=== PATIENT | male | born 1980 | race Caucasian/White ===

== ENCOUNTER 2021-07-15 13:03 | Emergency (ER) | payer OTHER, SELFPAY ==
--- NOTE | 2021-07-15 13:11 | ED.EAR ---
HPI - Ear Problem General Chief complaint: Ear Stated complaint: EARACHE/FACIAL PAIN Time Seen by Provider: 07/15/21 13:11 Source: patient Mode of arrival: ambulatory Limitations: no limitations History of Present Illness HPI Narrative: John Mayfield is a 40 yo male with a L ear pain, started few days ago, has sinus issues and is in a [employer] work environment Related Data Allergies Allergy/AdvReac Type Severity Reaction Status Date / Time No Known Allergies Allergy Verified 07/15/21 13:14 Review of Systems Review of Systems: CONSTITUTIONAL: Denies fever, chills, sweats. EYES: Denies visual changes, redness, discharge. ENT: Denies rhinorrhea, congestion, sore throat, left otalgia. CARDIOVASCULAR: Denies chest pain, palpitations, edema. RESPIRATORY: Denies dyspnea, wheezing, cough GASTROINTESTINAL: Denies abdominal pain, nausea, vomiting, diarrhea. GENITOURINARY: Denies dysuria, hematuria, abnormal discharge SKIN: Denies rash or itching. NEUROLOGIC: Denies numbness, or focal weakness. PSYCHIATRIC: Denies anxiety or depression. PMFSH Past Medical History Medical History Dust allergy Social History Social History Smoking status: Never smoker Alcohol intake: current Comments At time of signature, I agree with nursing past medical, surgical, social and family history. There is no relevant family history pertinent to the presenting complaint. Blood pressure is elevated and should follow-up with PCP Exam Narrative: GENERAL: This is a well-nourished, well-developed patient, in mild distress. HEAD: normocephalic, atraumatic. EYES: PERRL. Sclera clear/white. Vision is grossly intact. EARS: External ears normal, auditory canals mild erythema and without drainage, fluid behind TMs greater on the left than right. Hearing grossly intact. NOSE: External nose normal without nasal discharge, nares without redness, no rhinorrhea. THROAT: Mucous membranes moist, NECK: Neck supple, non-tender CARDIOVASCULAR: Regular rate and rhythm without murmurs, gallops, or rubs. RESPIRATORY: Clear to auscultation. Breath sounds equal bilaterally. No wheezes, rales, or rhonchi. GASTROINTESTINAL: Not done SKIN: warm, intact with no suspicious lesions or rash, good texture and turgor. NEURO: awake, alert, and oriented to person, place and time. There were no obvious focal neurologic abnormalities. Steady gait EXTREMITIES: Normal range of motion. BACK: Nontender without deformity Course Course Emergency Course: Patient comes to [facility] with left ear pain is been going on for few days States he has sinus issues and dust allergy and works in a [employer] environment Started on Zyrtec and polymyxin eardrops Level of Care: Express Care Visit Vital Signs Vital signs: Vital Signs Temperature 97.7 F 07/15/21 13:12 Pulse Rate 84 07/15/21 13:12 Respiratory Rate 16 07/15/21 13:12 Blood Pressure 149/94 H 07/15/21 13:12 Pulse Oximetry 98 07/15/21 13:12 Temperature 97.7 F 07/15/21 13:12 Pulse Rate 84 07/15/21 13:12 Respiratory Rate 16 07/15/21 13:12 Blood Pressure 149/94 H 07/15/21 13:12 Pulse Oximetry 98 07/15/21 13:12 Medical Decision Making Differential Diagnosis Differential Diagnosis: Otitis media versus otitis externa versus eustachian tube dysfunction versus sinus drainage Vital Signs Vital Signs: Vital Signs Temperature 97.7 F 07/15/21 13:12 Pulse Rate 84 07/15/21 13:12 Respiratory Rate 16 07/15/21 13:12 Blood Pressure 149/94 H 07/15/21 13:12 Pulse Oximetry 98 07/15/21 13:12 Temperature 97.7 F 07/15/21 13:12 Pulse Rate 84 07/15/21 13:12 Respiratory Rate 16 07/15/21 13:12 Blood Pressure 149/94 H 07/15/21 13:12 Pulse Oximetry 98 07/15/21 13:12 Critical Care Time Critical Care Time Critical Care Time: No Discharge Plan Discharge Clinical Impressio
[2021-07-15 13:12] VITALS: BP 149/94; PULSE 84; RESP 16; TEMP 36.5; O2SAT 98
== END 2021-07-15 13:31 | disposition home or self-care (01) ==
PROVIDERS: Emergency Provider Nurse Practitioner
DX: H60.502 Unspecified acute noninfective otitis externa, left ear (principal)
CPT/HCPCS: 99213; G0463

== ENCOUNTER 2025-03-20 17:36 | Emergency (ER) | payer OTHER, SELFPAY ==
[2025-03-20 17:45] VITALS: BP 141/91; PULSE 92; RESP 18; TEMP 36.4; O2SAT 99
--- NOTE | 2025-03-20 17:57 | ED.SKABFB ---
HPI - Skin/Abscess/Foreign Bdy General Chief complaint: Skin/Abscess/Foreign Body Stated complaint: poison Sally Time Seen by Provider: 03/20/25 17:45 Source: patient and RN notes reviewed Mode of arrival: ambulatory Limitations: no limitations History of Present Illness HPI narrative: 44-year-old male presents Express Care complaining of rash to arms, abdomen, face, scalp approximately 5 days. Patient was [place] 5 days ago your a for [place] hunting season. Patient believes he might have gotten poison sally from there. Patient reports a pruritic rash. Patient has any fevers, body aches, chills, nausea vomiting or swelling to the lips, tongue, throat, breathing problems, wheezing, shortness of breath or any other symptoms. Patient trying calamine lotion with no relief. Related Data Allergies Allergy/AdvReac Type Severity Reaction Status Date / Time No Known Allergies Allergy Verified 03/20/25 17:41 Review of Systems Review of Systems: CONSTITUTIONAL: Denies fever, chills, or sweats. EYES: Denies visual changes, redness, or discharge. ENT: Denies rhinorrhea, congestion, sore throat, or otalgia. CARDIOVASCULAR: Denies chest pain, palpitations, or edema. RESPIRATORY: Denies cough or dyspnea. GASTROINTESTINAL: Denies abdominal pain, nausea, vomiting, or diarrhea. GENITOURINARY: Denies dysuria or hematuria. SKIN: Positive for rash and itching. MUSCULOSKELETAL: Denies back pain, joint pain, or myalgia. NEUROLOGIC: Denies headache, numbness, or weakness. PSYCHIATRIC: Denies anxiety or depression. All other systems reviewed are negative, except as documented in HPI. PMFSH Past Medical History Medical History Dust allergy Social History Social History Smoking status: Never smoker Alcohol intake: current Comments At the time of my signature, I reviewed and agree with the nursing past medical, surgical, social, and family history. There is no relevant family history pertinent to the patient complaint. Exam Narrative: GENERAL: This is a well-nourished, well-developed adult, in no apparent distress. They are non ill-appearing, nontoxic appearing. HEAD: normocephalic, atraumatic. EYES: Sclera clear/white. Conjunctiva normal. Vision is grossly intact. Extraocular movements intact EARS: External ears normal, Hearing grossly intact. NOSE: External nose normal THROAT: Mucous membranes moist, NECK: Neck supple,. CARDIOVASCULAR: Regular rate and rhythm RESPIRATORY: Respiratory rate normal, respiratory effort nonlabored, no respiratory distress GASTROINTESTINAL: Abdomen soft, non-tender, nondistended. Bowel sounds are active. No hepato-splenomegaly, or palpable masses. No guarding. SKIN: Macular papular, vesicular rash scattered scaly throughout the patient's bilateral arms, abdomen, were diffusely to left lower pelvis, and scantly on face and, on head of scalp. NEURO: awake, alert, and oriented to person, place and time. There were no obvious focal neurologic abnormalities. EXTREMITIES: No joint tenderness, effusion, or edema noted. Course Course Emergency Course: Portions of this record may have been created with voice recognition software Level of Care: Express Care Visit Vital Signs Vital signs: Vital Signs Temperature 97.6 F 03/20/25 17:45 Pulse Rate 92 03/20/25 17:45 Respiratory Rate 18 03/20/25 17:45 Blood Pressure 141/91 H 03/20/25 17:45 Pulse Oximetry 99 03/20/25 17:45 Oxygen Delivery Room Air 03/20/25 17:45 Temperature 97.6 F 03/20/25 17:45 Pulse Rate 92 03/20/25 17:45 Respiratory Rate 18 03/20/25 17:45 Blood Pressure 141/91 H 03/20/25 17:45 Pulse Oximetry 99 03/20/25 17:45 Oxygen Delivery Room Air 03/20/25 17:45 Reviewed MDM - Skin/Abscess/Foreign Bdy MDM Narrative Medical decision making narrative: Patient likely has contact dermatitis related to poison sally. Since it is distributed throughout the patient's trunk, arms, face and scalp, will go ahead and treat with oral prednisone set of topical steroids. Discussed physical exam findings. Advised supportive measures and signs/symptoms to go to the ER. Pt is appropriate for outpt treatment and f/u. Differential Diagnosis Differential diagnosis: Likely urticaria, cellulitis, eczema, insect bites, contact dermatitis and other (Poison sally) Critical Care Time Critical Care Time Critical Care Time: No Discharge Plan Discharge Clinical Impression: Poison sally dermatitis Patient Disposition: Home Condition: Stable Instructions: Poison Sally (ED) Additional Instructions: Take the prednisone as directed. Take it in the morning and take it with food. You may use iqqi-mcs-ywpjhnq Tecnu soap as directed on the bottle to help remove the oils from poison sally off your skin. You may use calamine lotion, camphor, Benadryl cream as needed for itchiness symptoms. Follow instructions on the bottle. You may also take Zyrtec or Claritin as needed for allergy or itchiness symptoms. Follow-up PCP in 3-5 days. If you develop any worsening redness, swelling, discharge, fevers, breathing problems, or any other concerns please go to the ER immediately. Patient Language: Azeri Prescriptions: New prednisone 10 mg tablet See Taper PO DIRECTED Qty: 42 0RF Taper: Prednisone Taper from 60 mg;12 days 60 mg DAILY for 2 Days and 0 Hour 50 mg DAILY for 2 Days and 0 Hour 40 mg DAILY for 2 Days and 0 Hour 30 mg DAILY for 2 Days and 0 Hour 20 mg DAILY for 2 Days and 0 Hour 10 mg DAILY for 2 Days and 0 Hour Rx Instructions: Follow taper instructions Follow-up/Referrals: UNKNOWN,DOCTOR [Primary Care Provider] Time of Disposition: 17:55
== END 2025-03-20 17:57 | disposition home or self-care (01) ==
DX: L23.7 Allergic contact dermatitis due to plants, except food (principal)
CPT/HCPCS: 99213; G0463

== ENCOUNTER 2025-04-15 09:06 | Emergency (ER) | payer OTHER, SELFPAY ==
[2025-04-15 09:21] VITALS: BP 133/66; PULSE 76; RESP 18; TEMP 36.6; O2SAT 97
--- NOTE | 2025-04-15 09:24 | ED.SKABFB ---
HPI - Skin/Abscess/Foreign Bdy General Chief complaint: Skin/Abscess/Foreign Body Stated complaint: poison Sally Time Seen by Provider: 04/15/25 09:24 Source: patient Mode of arrival: ambulatory Limitations: no limitations History of Present Illness HPI narrative: 44-year-old male presents with poison to face and groin. Itching and rash for 2-3 days. Started after hunting. Not using any vadg-qil-wtrjvdz medications to treat symptoms. All systems reviewed and negative except as noted. Related Data Allergies Allergy/AdvReac Type Severity Reaction Status Date / Time No Known Allergies Allergy Verified 04/15/25 09:20 [facility] Past Medical History Medical History Dust allergy Social History Social History Smoking status: Never smoker Alcohol intake: current Comments At time of signature, agree with nursing past medical, surgical, social and family history. There is no relevant family history pertinent to the presenting complaint. Exam Narrative: GENERAL: This is a well-nourished, well-developed patient, in no apparent distress. HEAD: normocephalic, atraumatic. EYES: PERRL. Sclera clear/white. Vision is grossly intact. EARS: External ears normal NOSE: External nose normal NECK: Neck supple, non-tender without lymphadenopathy, masses or thyromegaly. CARDIOVASCULAR: Regular rate and rhythm without murmurs, gallops, or rubs. RESPIRATORY: Clear to auscultation. Breath sounds equal bilaterally. No wheezes, rales, or rhonchi. SKIN: warm, Dry, intact, good texture and turgor. Erythematous macular papular raised rash to forehead, upper eyelids and cheeks. NEURO: awake, alert, and oriented to person, place and time. There were no obvious focal neurologic abnormalities. EXTREMITIES: No joint tenderness, effusion, or edema noted. Course Course Level of Care: Express Care Visit Vital Signs Vital signs: Vital Signs Temperature 36.6 C 04/15/25 09:21 Pulse Rate 76 04/15/25 09:21 Respiratory Rate 18 04/15/25 09:21 Blood Pressure 133/66 04/15/25 09:21 Pulse Oximetry 97 04/15/25 09:21 Oxygen Delivery Room Air 04/15/25 09:21 Temperature 36.6 C 04/15/25 09:21 Pulse Rate 76 04/15/25 09:21 Respiratory Rate 18 04/15/25 09:21 Blood Pressure 133/66 04/15/25 09:21 Pulse Oximetry 97 04/15/25 09:21 Oxygen Delivery Room Air 04/15/25 09:21 Reviewed MDM - Skin/Abscess/Foreign Bdy MDM Narrative Medical decision making narrative: treat poison sally rash with prednisone taper. Patient agrees with of care. Patient is taking medication in the past to treat poison sally without complications. Will follow up with his doctor as needed. Patient is alert, nontoxic. Differential Diagnosis Differential diagnosis: Likely abscess of skin or subcutaneous tissue, urticaria, eczema and contact dermatitis Discharge Plan Discharge Clinical Impression: Dermatitis due to plants, including poison sally, sumac, and oak Patient Disposition: Home Condition: Stable Instructions: Poison Sally (ED) Additional Instructions: take prednisone as prescribed. Take a daily antihistamine such as Claritin or Zyrtec. Apply steroid cream to affected area. Avoid applying to face. Follow-up your primary care physician if not improving. Patient Language: Hebrew Prescriptions: New prednisone 10 mg tablet See Rx Instructions .ROUTE .COMPLEX Qty: 42 0RF Rx Instructions: Take 6 tablets for 2 days Take 5 tablets for 2 days Take 4 tablets for 2 days Take 3 tablets for 2 days Take 2 tablets for 2 days Take 1 tablet for 2 days triamcinolone acetonide 0.1 % cream 1 applic topical BID Qty: 30 0RF Follow-up/Referrals: UNKNOWN,DOCTOR [Primary Care Provider] Time of Disposition: :29
--- OUTSIDE RECORDS SUMMARY | 2025-04-15 09:37 | XMS_ITS | Clinical Summary ---
[facility] [address] [place] [address] Care Team Providers Care Gas Appliance Servicer Name Role Phone Cedrick Chavez MD Primary Care Provide r Allergies No known active allergies Medications hydrocortisone 2.5 % ointmentIndicati ons:Rash and nonspecific skin eruption Apply topically 2 (two) times a day 30 g 1 5 Active Active Problems Problem Noted Date Diagnosed Date Obesity (BMI 30.0-34.9) 10/16/2024 Assessment & Plan (10/16/2024 11:33 AM CDT): Discussed importance of weight loss and healthy lifestyle Goal weight under 200 pounds Rectal bleeding 10/16/2024 Assessment & Plan (10/16/2024 11:33 AM CDT): Suspect related to internal hemorrhoids, but given additional GI symptoms not unreasonable to obtain colonoscopy Pt deferred rectal exam today Update CBC Referral for colonoscopy placed today Orders: Direct Scheduling Case Request: COLONOSCOPY CBC with auto differential; Future Internal hemorrhoids 04/27/2021 Overview (05/03/2022): 04/2022: Has had no recurrence last office visit. Was seen by GI specialist. BMI 34.0-34.9,adult 04/27/2021 Immunizations Immunization Administration Dates Next Due Influenza, Quadrivalent, Spl it, Preservative Free, Intramuscular 03/17/2019 Tdap 01/12/2021 Medical History Medical History Date Comments Bronchitis Family History Medical History Relation Name Comments No Known Problems Brother No Known Problems Daughter COPD Father Deep vein thrombosis Mother Stroke Mother No Known Problems Sister No Known Problems Son Relation Name Status Comments Brother Alive Daughter Alive Father Alive Mother Alive Sister Alive Son Alive Social History Tobacco Use Types Packs/Day Years Used Date Smoking Tobacco: Never Smokeless Tobacco: Never Tobacco Cessation:Counseling Given: Not Answered PHQ-2 Answer Date Recorded PHQ-2 Total Score (If total score is 3 or more points, staff should administer the PHQ-9) 0 10/16/2024 Sex and Gender Information Value Date Recorded Sex Assigned at Not on file Legal Sex Male 8:10 AM [employer] Gender Identity Not on file Sexual Orientation Not on file Last Filed Vital Signs Vital Sign Reading Time Taken Comments Blood Pressure 124/76 10/16/2024 11:15 AM CDT Pulse 89 10/16/2024 11:15 AM CDT Temperature - - Respiratory Rate - - Oxygen Saturation 96% 10/16/2024 11:15 AM CDT Inhaled Oxygen Concentration - - Weight 107.5 kg (237 lb) 10/16/2024 11:15 AM CDT Height 182.9 cm (6') 10/16/2024 11:15 AM CDT Body Mass Index 32.14 10/16/2024 11:15 AM CDT Plan of Treatment Upcoming Encounters Date Type Department Care Team (Late st Contact Info) Description 04/25/2025 8:30 AM [employer] Hospital Encounter [facility] [address] [place] [phone] [place] [id number] [place], [place] [phone] 04/25/2025 8:30 AM [employer] - 04/25/2025 9:00 AM [employer] Surgery [facility] [address] [place] [phone] [place] [id number] [place] [address] COLONOSCOPY Scheduled Procedures Name Priority Associated Diagnoses Date/Ti me COLONOSCOPY Open Access Rectal bleeding 04/25/2025 8:30 AM [employer] Health Maintenance Due Date Last Done Comments HPV Vaccines (1 - 3-dose SCDM series) 2009 Influenza Vaccine (#1) 2025 03/17/2019 Depression Screening 10/16/2025 10/16/2024, 04/29/2022, 04/27/2021 Regular Well Visit/Exam 18-64 10/16/2025 10/16/2024, 04/29/2022, 04/27/2021 DTaP/Tdap/Td Vaccine (2 - Td or Tdap) 01/12/2031 01/12/2021 Hepatitis C Screening Completed 10/16/2024 Hepatitis B Screening Discontinued Pneumococcal vaccine <65 Aged Out No longer eligible based on patient's age to complete this topic Varicella Vaccines Discontinued Procedures Procedure Name Priority Date/Time Associated Diagnosis Comments HEPATITIS C ANTIBODY Routine 10/16/2024 11:52 AM CDT Need for hepatitis C screening test from Last 3 Months or Most Recently Relevant to Health Maintenance Results * Hepatitis C antibody Blood (10/16/2024 11:52 AM CDT) Hep C Ab Nonreactive Nonreactive Comment: Interpretive Data Nonreactive: Antibodies to HCV not detected. Does NOT exclude the possibility of recent exposure to HCV. Equivocal: Equivocal for HCV antibodies. Supplemental molecular testing will be automatically performed to determine infection status in accordance with current CDC screening recommendations. Reactive: Positive for HCV antibodies. This may represent current or past HCV infection. Supplemental molecular testing will be automatically performed to determine current infection status in accordance with current CDC screening recommendations. Interpretive data was last revised on 2019. Blood 10/16/2024 11:5 2 AM CDT 10/16/2024 7:05 PM CDT Cedrick Chavez MD LAB MICROBIOLOGY - NERAL ORDERABLES Final Result [facility] [address] Department [place] [address] from Last 3 Months or Most Recently Relevant to Health Maintenance [place] [id number] Care Teams [employer]liance [employer] Relationship Specialty Start Date End Date Cedrick Chavez MD [address] [place] [address] PCP - General Internal Medicine 10/16/24
== END 2025-04-15 09:33 | disposition home or self-care (01) ==
PROVIDERS: Emergency Provider Nurse Practitioner Family
DX: L23.7 Allergic contact dermatitis due to plants, except food (principal)
CPT/HCPCS: 99213; G0463